=== PATIENT | male | born 1965 | race Caucasian/White ===

== ENCOUNTER 2019-06-24 08:45 | Emergency (ER) | payer BC, SELFPAY ==
[2019-06-24 09:00] VITALS: BP 176/89; PULSE 86; RESP 18; TEMP 36.6; O2SAT 97; BMI 37.9
--- NOTE | 2019-06-24 09:01 | ED.SKABFB ---
HPI - Skin/Abscess/Foreign Bdy General Chief complaint: Skin/Abscess/Foreign Body Stated complaint: left big toe nail partially removed/diabetic x2day Time Seen by Provider: 06/24/19 08:52 Source: patient Mode of arrival: Ambulatory Limitations: no limitations History of Present Illness HPI narrative: Patient is a 53-year-old male with history of diabetes presenting with right big toenail problem for 2 days. He cut his toenails a couple days ago when he cut it it split lengthwise down the middle. He says it gets caught other worried it might be infected. No fever no redness no drainage Review of Systems Review of Systems Narrative: GENERAL: Denies chills,fever HEENT: Denies throat pain RESPIRATORY: Denies dyspnea, cough, wheezing CARDIOVASCULAR: Denies chest pain, palpitations GASTROINTESTINAL: Denies nausea, vomiting MUSCULOSKELETAL: Denies extremity pain, injury SKIN: See HPI NEUROLOGIC: Denies weakness, dizziness, headache, numbness 8 point review of systems is negative except for those stated above and HPI Patient History Medical History (Updated 06/24/19 @ 09:13 by Ariela Rocha DO) Diabetes (Acute) Hypertension (Acute) Exam Initial Vital Signs Initial Vital Signs: Vital Signs Temperature 97.9 F 06/24/19 09:00 Pulse Rate 86 06/24/19 09:00 Respiratory Rate 18 06/24/19 09:00 Blood Pressure 176/89 H 06/24/19 09:00 Pulse Oximetry 97 06/24/19 09:00 GENERAL: Well-appearing, well-nourished and in no acute distress. CARDIOVASCULAR: peripheral pulses in tact, cap refill <2 sec RESPIRATORY: No respiratory distress, speaks in full sentences without difficulty EXTREMITIES: Normal range of motion, no clubbing or edema. Neurovascularly intact NEUROLOGICAL: Cranial nerves II through XII grossly intact. Normal gait and speech. SKIN: Right big toenail is still attached lengthwise injury noted down removal of toenail however still very much attached it does come up a little bit. Toe itself is not erythematous. No subungual hematoma, however there is some blood surrounding the nail. Course Vital Signs Vital signs: Vital Signs - 8 hr 06/24/19 09:00 Temperature 97.9 F Pulse Rate 86 Respiratory Rate 18 Blood Pressure 176/89 H Pulse Oximetry 97 MDM - Skin/Abscess/Foreign Bdy MDM Narrative Medical decision making narrative: At this time no sign of infection recommend supportive care and daily checks. He is given podiatry information as well. Discharge Plan Departure Patient Disposition: Home Clinical Impression: Avulsed toenail Qualifiers: Encounter type: initial encounter Qualified Code(s): S91.209A - Unspecified open wound of unspecified toe(s) with damage to nail, initial encounter Instructions: DI for Ingrown Toenail Removal, DI for Ingrown Toenail Activity Restrictions/Additional Instructions: *You have been diagnosed with avulsed toenail *What to do: Recommend is keeping toenail wrapped letting it air out. Look at toes and feet every day or infection *Continue to take medications as directed *Follow up with your primary care provider in 2-3 days May need to follow up with Podiatry *Return to ER if you should have redness pus swelling increased pain or any new, worsening or concerning symptoms Referrals: Maryan Alonso DPM [Physician] - Wali Luna DPM [Physician] -
== END 2019-06-24 09:30 | disposition home or self-care (01) ==
PROVIDERS: Emergency Provider Emergency Medicine
DX: S91.209A Unspecified open wound of unspecified toe(s) with damage to nail, initial encounter (principal); E11.9 Type 2 diabetes mellitus without complications; I10 Essential (primary) hypertension
CPT/HCPCS: 99282

== ENCOUNTER → 2021-11-28 13:40 | Outpatient (CLI) | payer OTHER, SELFPAY ==
[2021-11-28 14:09] LABS: Appearance Urine UA CLEAR; Bilirubin Urine UA NEGATIVE (NEGATIVE); Color Urine UA YELLOW; Glucose Urine UA NEGATIVE (Negative); Ketones Urine UA NEGATIVE (NEGATIVE); Leukocyte Esterase Urine UA NEGATIVE (NEGATIVE); Nitrite Urine UA NEGATIVE (Negative); Occult Blood Urine UA TRACE-LYSED (Negative); Protein Urine UA NEGATIVE (Negative); Urobilinogen Urine UA 0.2 E.U./dL (0.2)
[2021-11-28 14:11] LABS: Add Manual Diff / Slide Review NO; Basophils Absolute Auto 0 /uL (0-100); Basophils Percent Auto 0.2 % (0-2); Eosinophils Absolute Auto 200 /uL (0-450); Eosinophils Percent Auto 2.5 % (2-4); Hematocrit 41.1 % (41-53); Hemoglobin 14.3 g/dL (13.5-17.5); Lymphocytes Absolute Auto 2200 /uL (1100-4500); Lymphocytes Percent Auto 25.1 % (25-40); Mean Corpuscular HGB Conc 34.9 % (30-36); Mean Corpuscular Hemoglobin 29.9 PG (26-34); Mean Corpuscular Volume 85.5 fL (80-100); Monocytes Absolute Auto 600 /uL (0-900); Monocytes Percent Auto 7.1 % (3-14); Neutrophils Absolute Auto 5700 /uL (1500-7000); Neutrophils Percent Auto 65.1 % (50-75); Platelet Count 360 X10^3/uL (150-400); Red Cell Distribution Width 13.3 % (11.6-14.8); White Blood Cell Count 8.7 X10^3/uL (4.5-11.0)
[2021-11-28 14:43] LABS: Bacteria Urine Few (2-10); RBC Urine 0-1/HPF (0-5/HPF); Squamous Epithelial Cell Urine 0-1 /HPF (0-5/HPF); WBC Urine 0-1/HPF (0-5/HPF)
[2021-11-28 14:44] LABS: Culture Indicated Urine Cult Not Indicated
[2021-11-28 14:53] LABS: BUN Creatinine Ratio 15.1 (6-22); Blood Urea Nitrogen 13 mg/dL (9-20); Calcium 9.1 mg/dL (8.4-10.2); Carbon Dioxide 29 mmol/L (22-32); Chloride 103 mmol/L (98-107); Estimated Glomerular Filt Rate > 60 mL/min (>60); Glucose 97 mg/dL (70-100); HEMOLYSIS < 15 (0-50); Potassium 4.4 mmol/L (3.4-5.1); Sodium 139 mmol/L (137-145)
[2021-11-28 15:12] LABS: Hemoglobin A1C% w Est Avg Glu 6.4 % (4.0-6.0)
== END ==
PROVIDERS: Referring Provider Orthopaedic Surgery; Visit Provider Orthopaedic Surgery
DX: Z01.812 Encounter for preprocedural laboratory examination (principal); R73.9 Hyperglycemia, unspecified; N39.0 Urinary tract infection, site not specified
CPT/HCPCS: 36415; 80048; 81001; 83036; 85025; 93005

== ENCOUNTER → 2021-12-10 09:42 | Outpatient (CLI) | payer OTHER, SELFPAY ==
[2021-12-10 12:54] LABS: COVID19 -Nasal RAPID Negative (Negative)
== END ==
PROVIDERS: Referring Provider Orthopaedic Surgery; Visit Provider Family Medicine Sleep Medicine
DX: Z20.822 Contact with and (suspected) exposure to COVID-19 (principal)
CPT/HCPCS: 87635; C9803

== ENCOUNTER 2021-12-12 11:38 | Day surgery (SDC) | payer OTHER, SELFPAY ==
[2021-12-10 12:56] VITALS: BMI 38.4
[2021-12-12] VITALS (12 sets, daily range): BP systolic 128–164; BP diastolic 70–88; PULSE 84–102; RESP 14–20; TEMP 36.2–38; O2SAT 93–98; BMI 38.4
--- NOTE | 2021-12-12 09:12 | DI.RAD.S_ITS ---
PROCEDURE: XR KNEE RT 1TO2V INDICATIONS: tka TECHNIQUE: 2 view(s) of the knee acquired. [facility] 4+ VIEWS RIGHT, 07/25/2021, 9:23. FINDINGS: Bones: Patient is status post knee joint arthroplasty. Hardware components are in expected positions. Visualized bony structures are intact. Soft tissues: Overlying postoperative changes are noted. IMPRESSION: Expected postsurgical change for right knee arthroplasty. Dictated by: Ree Liz MD, PhD on 12/13/2021 at 9:21 Approved by: Ree Liz MD, PhD on 12/13/2021 at 9:22
[2021-12-12] MEDS: ACETAMINOPHEN 325 MG TABLET 975 MG PO (12:29)
[2021-12-12] MEDS: CELECOXIB 200 MG CAPSULE PO (12:29)
[2021-12-12] MEDS: VANCOMYCIN 1,000 MG/200 ML PIGGYBACK 200 MG IV (12:43)
[2021-12-12] MEDS: LACTATED RINGERS 1,000 ML 42 ML IV ×2 (12:43→15:01)
--- NOTE | 2021-12-12 13:26 | PM.PREOP ---
Pre-operative Note COVID-19 COVID-19 status: Negative Interval Note History & Physical reviewed/Exam performed by Physician: Yes Changes to H&P: No
[2021-12-12] MEDS: TRANEXAMIC ACID 1,000 MG VIAL 2000 MG INJ ×2 (14:23→16:03)
[2021-12-12] MEDS: CEFAZOLIN 2 GM/20 ML SYRINGE IV (14:26)
--- NOTE | 2021-12-12 14:38 | SUR.OPER ---
Supine on padded OR bed. Pillow under head, arms secured on padded armboards <90 degree abduction. Safety belt across torso. Non-operative leg secured with tape over blanket over lower leg. Operative leg secured in DeMayo/Jose/Nathe positioner. Foam padded brace at thigh of operative leg.
[2021-12-12] MEDS: BUPIVACAINE LIPOSOME 266 MG/20 ML VIAL INJ (14:48)
[2021-12-12] MEDS: EPINEPHrine 1 MG/ML 0.15 MG INJ (14:49)
--- NOTE | 2021-12-12 17:33 | P.OP_ITS ---
Operative Date/Time/Diagnoses Date of procedure: 12/12/21 Time of procedure: 17:30 Pre-op diagnosis: Severe right knee OA Post-op diagnosis: same Procedure & Clinicians Procedure: Right total knee arthroplasty Same procedure as scheduled: Yes Indications: The patient has had progressively worsening right knee pain with radiographic changes consistent with arthritis. Non-operative management has failed and the patient has requested total knee replacement. The risks, benefits and alternatives to surgery were discussed with the patient prior to proceeding. Risks discussed included, but were not limited to, failure to relieve pain, stiffness, infection, nerve damage, deep venous thrombosis, pulmonary embolism, stroke, coma, heart attack, permanent paralysis and , as well as the potential need for eventual revision of the prosthetic. Surgeon: Otilia Haile Site Damage Prevention Technician: Buster Tavares Anesthesia Type: General and Spinal Operative Notes Findings: Very tight knee, severe right knee osteoarthritis, acceptable stability Closure Type: primary Specimen(s): none sent Prosthetic devices, grafts, tissues, transplants, or devices: [facility] 2 size 8 femur, size 7 tibia, +9 poly, 38 oval patella Applied: drain(s) Estimated Blood Loss (mL): 250 Blood products transfused: none Tourniquet time (min): 93 Procedure in detail: The patient was seen in the pre-operative area, where the patient identified the right knee as the operative site and this was marked with my initials. The patient received pre-operative antibiotics, and was taken to the operating room and placed on the operative table in the supine position. After satisfactory anesthesia, a manager multimedia out was performed. The right leg was encircled with a tourniquet about the proximal thigh, and the leg was prepared from the toes to the tourniquet with ChloroPrep in the usual fashion and draped through sterile drapes. The leg was elevated and exsanguinated with Eschmark bandage and the tourniquet inflated to [250] mmHg pressure. The knee was approached through an approximately 18 cm incision centered over the patella and carried into the knee through a medial parapatellar arthrotomy. A portion of the medial and lateral meniscus was resected. Soft tissue was carefully mobilized around the patella the patella was measured with a caliper. Bone was resected from the patella and the patellar height was reconstituted with up an appropriate sized patellar component. He had a very tight knee. It was quite difficult taped to mobilize the patella and the final cut and mobilization was done after the distal femoral and tibial cut. A cover was then placed on the patella. A small amount of additional medial and lateral meniscus was resected. The distal femur was cut at 5?. A [+2] cut was used. It looked like an appropriate distal femoral cut and the cut was made without difficulty. An extramedullary guide was used for the tibial cut. 10 mm was resected off the least affected side.The tibia was prepared. The rotation was assessed. The patient was placed in extension residual medial and lateral meniscus as well as any residual bone was carefully resected. [No] additional tibia was resected. Hemostasis was achieved especially posteriorly. Additional local was injected into the posterior capsule. The extension gap was assessed and additional releases for gap balancing were performed as necessary. It was checked with the gap manager of clinical. The femoral component trial was placed and the notch was finished. The rotation was assessed and the appropriate size femoral guide was placed on the distal femur and finishing cuts were made. There was no evidence of notching. The anterior, posterior and chamfer cuts were then made. The posterior osteophytes and soft tissues were then removed. The posterior capsule was injected with part of a mixture of 60 ml 0.25% Marcaine mixed with 20 ml Exparel for post operative pain control. The remainder of this mixture was injected into the capsule and subcutaneous tissues during cement curing. The tibial and femoral components were then placed and the knee placed through a range of motion. There was good range of motion and stability. He did have a tight patellofemoral joint. Range of motion was [0-130], with good stability throughout the range. The trials were then removed, and the tibia was finished. The bone was prepared with pulsatile lavage, and dried with a sponge. Cement was applied and the final prosthetics placed. Excess cement was removed during and after cement curing. A brief Betadine soak was performed. After confirming there was no extruded cement posteriorly, the final tibial insert was placed. The knee was copiously irrigated and the tourniquet deflated. Hemostasis was obtained with the Bovie cautery. A drain was placed and brought out superolaterally. The capsule was closed with interrupted nonabsorbable suture. The subcutaneous layer was closed with barbed sutures, and the skin with a running 3-0 V-Lock suture and Surgical glue. A lizet dressing was applied and the patient was taken to recovery having tolerated the procedure well. Complications: none Post-operative Condition: stable Disposition: Acute Care Plan for aftercare: The patient will be maintained on a standard total knee replacement protocol with weight bearing as tolerated. The patient will receive aspirin and sequential compression devices for DVT prophylaxis. The patient will be discharged home when safe for the home environment.
[2021-12-12] MEDS: ONDANSETRON 4 MG/2 ML INJ IV (17:38)
[2021-12-12] MEDS: OXYCODONE IR 5 MG TABLET PO ×2 (17:39→20:46)
[2021-12-12] MEDS: ALBUTEROL/IPRATROPIUM 3 ML AMPUL INH (17:39)
[2021-12-12] MEDS: LACTATED RINGERS 1,000 ML 100 ML IV (18:45)
[2021-12-12] MEDS: ASPIRIN EC 81 MG TABLET PO (20:46)
[2021-12-12] MEDS: ACETAMINOPHEN 325 MG TABLET 650 MG PO (20:46)
[2021-12-12] MEDS: DOCUSATE 100 MG CAPSULE PO (20:46)
[2021-12-12] MEDS: LORATADINE 10 MG TABLET PO (20:47)
[2021-12-12] MEDS: CEFAZOLIN VIAL 3 GM in SODIUM CHLORIDE 0.9% 100 ML IV (22:24)
[2021-12-12] MEDS: IBUPROFEN 400 MG TABLET PO (22:26)
[2021-12-13] VITALS: BP 124/78; PULSE 101; RESP 18; TEMP 36.8; O2SAT 97
[2021-12-13] MEDS: ACETAMINOPHEN 325 MG TABLET 650 MG PO ×4 (01:21→18:14)
[2021-12-13] MEDS: OXYCODONE IR 5 MG TABLET PO ×2 (01:23→15:52)
[2021-12-13 06:00] VITALS: BP 133/82; PULSE 92; RESP 18; TEMP 36.9; O2SAT 96
[2021-12-13] MEDS: CEFAZOLIN VIAL 3 GM in SODIUM CHLORIDE 0.9% 100 ML IV (06:24)
[2021-12-13] MEDS: OXYCODONE IR 10 MG TABLET PO ×2 (06:25→11:44)
[2021-12-13] MEDS: IBUPROFEN 400 MG TABLET PO ×2 (06:25→14:04)
[2021-12-13 06:50] LABS: Hematocrit 33.8 % (41-53); Hemoglobin 11.7 g/dL (13.5-17.5)
[2021-12-13] MEDS: METFORMIN HCL 500 MG TABLET 1000 MG PO ×2 (08:05→16:50)
[2021-12-13] MEDS: ASPIRIN EC 81 MG TABLET PO (08:05)
[2021-12-13] MEDS: DOCUSATE 100 MG CAPSULE PO (08:05)
--- NOTE | 2021-12-13 08:43 | P.DS_ITS ---
History of Present Illness History of Present Illness Date Patient Seen: 12/13/21 Time Patient Seen: 08:43 Chief complaint: Knee pain Narrative: Pain is [id number]. Denies fever or chills. No nausea vomiting. Patient has assistance at home. Discharge Providers Provider Discharge Date: 12/13/21 Consults: 12/12/21 09:12 Consult to Anesthesiology Routine Comment: Consulting Provider: Anesthesiologist Reason for consultation: Regional block for post operative pain control 12/12/21 18:14 Consult to Discharge Planning Routine Comment: Consult to Physical Therapy Evaluate & Treat Comment: Physician Instructions: postop TKA protocol Consult to Respiratory Therapy Evaluate & Treat Comment: Physician Instructions: Evaluate and treat Discharge provider: Buster Tavares PA-C Summary Hospital Course Discharge Diagnosis: Severe right knee osteoarthritis Hospital Course: Right total knee arthroplasty Same procedure as scheduled: Yes Indications: The patient has had progressively worsening right knee pain with radiographic changes consistent with arthritis. Non-operative management has failed and the patient has requested total knee replacement. The risks, benefits and alternatives to surgery were discussed with the patient prior to proceeding. Risks discussed included, but were not limited to, failure to relieve pain, stiffness, infection, nerve damage, deep venous thrombosis, pulmonary embolism, stroke, coma, heart attack, permanent paralysis and , as well as the potential need for eventual revision of the prosthetic. Surgeon: Otilia Haile Casting Chipper: Buster Tavares Anesthesia Type: General and Spinal Operative Notes Findings: Very tight knee, severe right knee osteoarthritis, acceptable stability Closure Type: primary Specimen(s): none sent Prosthetic devices, grafts, tissues, transplants, or devices: [employer] BCS 2 size 8 femur, size 7 tibia, +9 poly, 38 oval patella Applied: drain(s) Estimated Blood Loss (mL): 250 Blood products transfused: none Tourniquet time (min): 93 Patient admitted to hospital for right total knee arthroplasty. Patient consented to the same. Patient underwent right total knee arthroplasty on December 12, 2021. Patient back in his room recovering well as in stable condition. Patient will be discharged home today after physical therapy if safe for home environment. Status at Discharge Cognitive/behavioral status at discharge: at baseline, oriented Functional status at discharge: uses cane/walker Overall status at discharge: patient is progressing back to baseline Time Spent with Patient Time spent: Less than 30 minutes Exam Vital Signs (past 8 hours): - 12/13/21 06:00 Temperature 98.4 F Pulse Rate 92 H Respiratory Rate 18 Blood Pressure 133/82 Pulse Oximetry 96 Oxygen Delivery Method Room Air Oxygen Flow Rate 0 Narrative Exam Narrative: 56-year-old male resting comfortably in bed in no apparent distress. Dressing clean dry and intact. Motor functions intact bilateral lower extremities. Sensation grossly intact to light touch bilateral lower extremities. Const General: cooperative HENMT Head: normal to inspection Resp Effort & Inspection: normal respiratory effort and able to speak in complete sentences Objective Labs Result Diagrams: 12/13/21 06:29 Labs: Laboratory Results - last 24 hr 12/13/21 06:29 Hgb 11.7 L Hct 33.8 L PFSH Medical History BCC (basal cell carcinoma) Diabetes HLD (hyperlipidemia) Hypertension SANAM on CPAP Osteoarthritis Surgical History Hx of arthroscopy of left knee Social History household members: spouse Smoking Status: Never smoker alcohol intake: current Discharge Assessment & Plan Assessment and Plan Assessment: Patient progressing as expected status post right total knee arthroplasty Plan of Treatment: Mobilize with physical therapy, routine total knee protocol. Multimodal pain management Discharge home today in stable condition. Discharge Plan Discharge Plan Patient Disposition: Home Discharge orders & Medications Discharge Orders: Discharge (Order); Ordered 12/13/21 Ordered By: Buster Tavares Prescriptions: New acetaminophen 325 mg Tablet 650 mg PO Q6HR Qty: 60 0RF polyethylene glycol 3350 17 gram Powder In Packet 17 gm PO DAILY PRN (Reason: Constipation) Qty: 20 0RF aspirin 81 mg Tablet,Delayed Release (Dr/Ec) 81 mg PO BID Qty: 60 0RF ibuprofen 400 mg Tablet 400 mg PO Q8HR Qty: 60 0RF oxycodone 10 mg Tablet 10 mg PO Q3HR PRN (Reason: Pain, Severe (7-10)) Qty: 60 0RF Continued atorvastatin 20 mg Tablet 20 mg PO DAILY 0RF cetirizine 10 mg Tablet 10 mg PO BEDTIME 0RF amlodipine 5 mg Tablet 5 mg PO QPM 0RF metformin 1,000 mg Tablet 1,000 mg PO BID 0RF lisinopril 40 mg Tablet 40 mg PO DAILY 0RF metoprolol tartrate 25 mg Tablet 25 mg PO DAILY 0RF Discontinued acetaminophen 500 mg Capsule 1,000 mg PO BID PRN (Reason: Pain) 0RF Follow up/Referrals: Otilia Haile MD [Physician] - As previously scheduled (Follow up w/ Татьяна Mcnulty PA-C, on 12/24/2021 @ 2:40 pm at [facility] office in [place].) Diet/Activity/Treatments Diet: Diet as Tolerated Activity: Walk frequently! Cold/Heat Therapy: Ice to knee as needed for pain. Skin/Wound/Dressing Care Report to your healthcare provider any signs of infection, such as:: chills, fever, night sweats, unusual drainage and unusual redness Dressing: May remove Sunny wrap after 24-48 hours, leave dressing in place Discharge Data Attending Provider: Otilia Haile Quality VTE Deep Vein Thrombosis/Pulmonary Embolism Present on Admission: No
--- NOTE | 2021-12-13 11:07 | PT.IIE ---
Current Diagnoses Unilateral primary osteoarthritis, right knee (12/12/21) Surgery Performed Operation Date: 12/12/21 13:45 Actual Procedures p Total Knee Arthroplasty(Right) - Otilia Haile MD Medical History (Last Reviewed 12/13/21 @ 08:46 by Buster Tavares PA-C) BCC (basal cell carcinoma) Diabetes HLD (hyperlipidemia) Hypertension SANAM on CPAP Osteoarthritis Physical Therapy Inpatient Evaluation/Re-Eval M1 PT/OT-IP Prior Functional Status Start: 12/13/21 13:41 Freq: NEEDED Status: Active Protocol: Document 12/13/21 11:07 AB (Rec: 12/13/21 13:54 AB [email or web address]) Medical Review Prior Functional Status Medical History Reviewed Yes Communication able to make needs known Mobility and Gait pt stated that he is modified indpeendent with all mobilities without AD indoors but uses a walking stick/SPC for outdoor or long distance ambulation Social History Household Members spouse Living Arrangements House Number of Floors (Floors) One Floor Number of Stairs To Enter/Railing? 1 step to enter Home Environment Standard Height Toilet,Tub/ Shower Home Equipment Front Wheel Walker,Raised Toilet Seat w/Armrests,Shower Seat with Backrest M2 PT-IP Current Condition Start: 12/13/21 13:41 Freq: NEEDED Status: Active Protocol: Document 12/13/21 11:07 AB (Rec: 12/13/21 13:54 [email or web address]) Physical Therapy Current Condition Current Condition Evaluation Date 12/13/21 Treatment Diagnosis s/p R TKA; difficulty in walking Onset Date 12/12/21 M3 PT-IP Subjective Start: 12/13/21 13:41 Freq: NEEDED Status: Active Protocol: Document 12/13/21 11:07 AB (Rec: 12/13/21 13:54 [email or web address]) Subjective Physical Therapy Visit Type Type Initial Evaluation Visit Start Time 11:07 Visit Stop Time 12:06 Total Visit Minutes 59 Number of ENGRAVER AUTOMATIC Visits 0 Physical Therapy Visit Comments Patient Comments agreeable to do PT Therapy Pain Assessment Pain When Pain Assessed At Rest Pain Present Pain Present Pain Reported Location right knee Intensity 10 Scale Used Numeric (0 - 10) Pain Management Techniques Distraction,Modification of Treatment,Re-positioning, Timing of Activity with Medications M4 PT-IP Mobility and Gait Start: 05/13/22 13:41 Freq: NEEDED Status: Active Protocol: Document 12/13/21 11:07 AB (Rec: 12/13/21 13:54 AB [email or web address]) PT-Bed Mobility Assessment Supine to Sit Supine to Sit Standby Assistance PT-Transfer Assessment Sit to and From Stand Sit to and from Stand Contact Guard Assistance,1 Person Assistance,Use of Upper Extremities Equipment Transfer Assistive Device Gait Belt,Front Wheeled Walker Orthotic/Prosthetic Devices or Brace: No Transfers Transfer Destination Chair Transfer Technique Stand Step Pivot Transfer Ability Level of Assist Contact Guard Assistance,1 Person Assistance,Use of Upper Extremities Comments Mobility Comments heel slide completed prior to mobility. completed supine to sit SBA. able to sit on EOB SBA. BP: 139/35. pt without c/o dizziness. complete dis to stand CGA and max cues and completed step transfer to chair using FWW CGA. nurse gave pt pain meds and adjusted IV. completed sit to stand CGA and ambulated ~ 30 ft towards the step using FWW CGA. completed up/down platform set using FWW CGA and cues on first attempt and completed again without cues on 2nd. pt ambulated back to his room and agreed to sit on the chair . positioned on the chair. call light and table placed within reach. Gait Assessment Gait Gait Assistance Required: Contact Guard Assist Distance (Feet) 30 Able to Maintain Weight Bearing Status Yes During Gait Assistive Devices Assistive Device Gait Belt,Front Wheeled Walker Orthotic/Prosthetic Devices or Brace: Yes Gait Deviations General Gait Pattern Antalgic,Decreased Stride Length,Decreased Feet Clearance Factors Limiting Gait Function Factors Limiting Gait Function Decreased Activity Tolerance, Decreased Strength,Limited Range of Motion,Pain,Poor Balance,Poor Safety Awareness Stair Climbing Assessment Evaluation Level of Assist On Stairs Contact Guard Assistance Devices Stair Climbing Assistive Devices Front Wheel Walker Technique/Endurance Stair Climbing Direction Ascend and Descend Stair Climbing Technique Step to Step Number of Steps Climbed 1 Query Text: Stair Climbing Set # Repetitions (reps) 2 PT-Balance Assessment Sitting Balance and Reactions Static Sitting Balance Ability Good Dynamic Sitting Balance Ability Good Standing Balance and Reactions Static Standing Balance Ability Fair Dynamic Standing Balance Ability Fair Device Used FWW M5 PT-IP Objective Assessments Start: 12/13/21 13:41 Freq: NEEDED Status: Active Protocol: Document 12/13/21 11:07 AB (Rec: 12/13/21 13:54 AB [email or web address]) Orientation Orientation/Cognition Level of Alertness Alert Orientation Name,Place,Situation Language Function Ability No Deficits Noted Safety Awareness Understands Safety Issues Memory Description No Deficits Noted Gross Range of Motion Lower Extremity ROM Assessment Within Functional Limits Impairments R knee flexion: 45 deg R knee extension: ~ 25 deg less to 0 Strength Lower Extremity Strength Assessment Right Impaired Hip 3+/5 Knee 3+/5 Coordination Assessment Gross Coordination Gross Coordination WNL Sensation Assessment Sensation Gross Sensation WNL Muscle Tone Muscle Tone WNL Yes M6 PT-IP Treatment Start: 12/13/21 13:41 Freq: NEEDED Status: Active Protocol: Document 12/13/21 11:07 AB (Rec: 12/13/21 13:54 AB [email or web address]) Physical Therapy Treatment Education Education Provided Precautions,Weight Bearing Status,Post-Op Packet,Safety M7 PT-IP Assessment and Plan Start: 12/13/21 13:41 Freq: NEEDED Status: Active Protocol: Document 12/13/21 11:07 AB (Rec: 12/13/21 13:54 [email or web address]) PT Summary Assessment and Plan Potential Rehabilitation Potential Fair Status of Condition at Evaluation Evolving Summary Impairments Pain,ROM,Strength,Balance, Coordination,Sensation,Tone, Cognition,Bed Mobility, Transfers,Gait,Activity Tolerance Assessment Summary pt requiring CGA with mobility using FWW and has decrease activity tolerance due to c/o increase pain. pt stated that his spouse will not be able to come in for caregiver training due pt spouse works until after 4 pm. will continue to assess pt's mobility this afternoon for safe d/c. pt has outpt PT scheduled Goals Bed Mobility Goal Independent Transfer Goal Independent,Front Wheeled Walker Gait Goal Independent,Front Wheel Walker Gait Distance 200 Other Goals up/down 1 platform step using FWW mod I Days to Meet Goals 3 Frequency of Treatment Frequency Of Treatment Twice a Day Treatment Plan Physical Therapy Treatment Plan Bed Mobility Training,Transfer Training,Gait Training, Therapeutic Exercise,Balance Retraining,Post Op Education, Discharge Planning,Hot or Cold Pack,Neuromuscular Re-ed, Coordination Retraining,Manual Therapy Weight Bearing Status Weight Bearing Status Weight Bear as Tolerated Allowed Weight Bearing Amount (enter % RLE WBAT or #) (%) Recommendations To Nursing Amount of Assist Needed 1 Person Assist Discharge Recommendations PT Discharge Recommendations Home with Assistance, Outpatient PT Transportation Needs at Discharge Private Vehicle
[2021-12-13] MEDS: METOPROLOL IR 25 MG TABLET PO (11:44)
--- NOTE | 2021-12-13 11:44 | CM.DANOTE ---
DCP: Case received, EMR reviewed and met with patient. Introduced self and role. Was able to obtain information regarding patient's baseline activity status at home prior to his surgery. DCP assessment completed with information currently available. Patient is a 56 year old male who admitted yesterday morning to the care of the orthopedic team. PCP: JUSTINE MCKEE. Patient came to the hospital for a surgical procedure. He had left total knee arthroplasty. Patient has history of unilateral primary osteoarthritis. Met with patient in his room. He is alert and oriented. He was sitting up in bed, had been on his phone prior. He resides in [place] with his spouse, Jemma. At his baseline, he drives, only uses a walking stick. Confirmed that he has a couple of steps to get into his home only, and that his should be able to assist him when he goes home. P: Patient has discharge orders for today, pending working with Nathaniel Orozco RN/Workers Compensation Claims Analyst Discharge Planning/Care Management CM Discharge Assessment Start: 12/13/21 11:42 Freq: Status: Active Protocol: Document 12/13/21 11:42 (Rec: 12/13/21 11:44 [id number]) Discharge Planning Assessment Assigned Lease Analyst Estefania Orozco RN/Workers Compensation Claims Analyst Advance Directives? Yes Advance Directives on File No History Provided By Patient,Medical Record Prior Living Arrangements House Household Members spouse Type of transporation used prior to Drives own vehicle admit Independent with ADL's Yes Is patient alert and oriented? Yes Caregiver for Another No DME Already Rented / Owned Other Comment Patient indicated he uses a walking stick. Patient/Family Preference OP PT Therapy Barriers to Discharge No Discharge Plan Home Transportation Arrangement Spouse Referrals Initiated None needed Whiteboard Updated in Patient Room with Yes name and ext. # of Lease Analyst Review Status In Process Next Review Type Continued Stay Review Pre-Anesthesia Assessment Start: 12/10/21 12:56 Freq: Status: Complete Protocol: Document 12/10/21 12:56 CAB (Rec: 12/10/21 13:07 CAB [id number]) Pre-Anesthesia Assessment Preferred Name [facility] [place] Patient Information Reviewed Via Phone Assessment Assessment Completed With Patient Diagnostic Results BMP/CMP,CBC,EKG Comment Labs/ECG @ [facility] 11/28/21, COVID screen @ [facility] 12/10/21 Negative [facility] Care Provider [facility] Se[facility] Specialist in Last 12 Months Yes Specialist Seen Orthopedist Primary Language Korean Care Team Coordinator Scheduler Required No Height 6 ft 5 in Weight 324 lb Body Mass Index (BMI) 38.4 Hearing Ability Normal Visual Assist Glasses Dentition Type Teeth, Natural Present Barriers to Learning None Hx Anesthesia Reactions No Hx Family Anesthesia Reaction No Hx Malignant Hyperthermia No Hx Blood Transfusions No Anesthesia Review Requested No alcohol intake current alcohol intake frequency holidays/special occasions only Smoking Status Never smoker Substance Use Type does not use Pain Present Pain Reported Musculoskeletal Symptoms Abnormal Gait,Difficulty Walking,Joint Pain History of Falling (Recent or History of No ) Patient is completely paralyzed or No completely immobile Prosthesis or Orthotic Device Cane Mental Status Oriented to own ability Is patient on oxygen? No Does patient have JOSE/SOB No Hx Sleep Apnea Yes CPAP/BIPAP use prescribed and used routinely Will Bring CPAP/BIPAP DOS Yes Currently Taking a Beta Arlen Yes: Metoprolol Hx Chest Pain No Hx SOB No Hx Syncope or Dizziness No Anti-Coagulant Therapy No Has a Power Nut Runner Operator No Cardiac Testing No Hx Pacemaker/ICD No Pacemaker Rep Required? No Cardiac Clearance Received Not Applicable Diet Type At Home Regular dysphagia No Urinary Catheter Present No Hx Urinary Self Catheterization No Diabetes Yes HgbA1C 6.4 Date 11/28/21 Hx Drug Resistant Organism No Presence of External or Internal Medical Yes: CPAP Devices Have you had any close contact with No someone diagnosed with COVID-19? Received a COVID vaccine? No Marital Status Lives With spouse Prior Living Arrangements House Number of Floors (Floors) One Floor Support System Spouse Does the Patient Have Assistance After Yes Surgery Patient Discharge Plan Description Return Home Comment Pt advised overnight length of stay per surgeon Feels Safe in Current Environment Yes Been Physically Hurt or Threatened By a No Person in Current Environment Do you have thoughts of harming yourself None or others? Are you currently considering suicide? No Do you have a plan to hurt yourself or No Plan others? Do You Have Any Spiritual Beliefs That No May Affect Your HC Choices? Do You Have Any Cultural Practices That No May Affect Your HC Choices? Comment Mandaeism Who Can We Speak to About Patient's Care Family, friends Identifying Code for Release of Patient Declines to issue Information Health Care Proxy/Next of Kin Jemma () Health Care Proxy Emergency Contact Name Jemma () Emergency Contact Advance Directives? Yes Advance Directives on File No Requested Patient Bring Advanced Yes Directives DOS Power of Mechanical Energy Engineer Yes Power of Mechanical Energy Engineer Name Jemma () Power of Mechanical Energy Engineer PAC Instructions Bring CPAP/BIPAP,Diabetes instructions,Durable medical equipment,Medications to take/ avoid,Nasal antibiotic,No ETOH /petroleum product on skin DOS ,NPO,Post-op transportation, Pre-surgical wash,Sensory aids ,Sturdy shoes/comfortable clothes,Do not bring valuables and remove jewelry
[2021-12-13] MEDS: ATORVASTATIN 20 MG TABLET PO (11:45)
[2021-12-13 11:51] VITALS: BP 158/81; PULSE 90
[2021-12-13] MEDS: lisinopriL 20 MG TABLET 40 MG PO (11:51)
--- NOTE | 2021-12-13 14:40 | PT.IPTN ---
Current Diagnoses Unilateral primary osteoarthritis, right knee (12/12/21) Surgery Performed Operation Date: 12/12/21 13:45 Actual Procedures p Total Knee Arthroplasty(Right) - Otilia Haile MD Physical Therapy Treatment Note M2 PT-IP Current Condition Start: 12/13/21 13:41 Freq: NEEDED Status: Active Protocol: Document 12/13/21 11:07 AB (Rec: 12/13/21 13:54 AB [id number]) Physical Therapy Current Condition Current Condition Evaluation Date 12/13/21 Treatment Diagnosis s/p R TKA; difficulty in walking Onset Date 12/12/21 M3 PT-IP Subjective Start: 12/13/21 13:41 Freq: NEEDED Status: Active Protocol: Document 12/13/21 14:40 AB (Rec: 12/13/21 16:36 AB [id number]) Subjective Physical Therapy Visit Type Type Treatment Note Visit Start Time 14:40 Visit Stop Time 15:15 Total Visit Minutes 35 Number of WOODWINDS TEACHER Visits 0 Physical Therapy Visit Comments Patient Comments agreeable to do PT Therapy Pain Assessment Pain When Pain Assessed At Rest Pain Present Pain Present Pain Reported Location right knee Intensity 5 Scale Used Numeric (0 - 10) Pain Management Techniques Apply Cold,Distraction, Modification of Treatment,Re- positioning,Timing of Activity with Medications M4 PT-IP Mobility and Gait Start: 12/13/21 13:41 Freq: NEEDED Status: Active Protocol: Document 12/13/21 14:40 AB (Rec: 12/13/21 16:36 AB [id number]) PT-Transfer Assessment Sit to and From Stand Sit to and from Stand Standby Assistance,1 Person Assistance,Use of Upper Extremities Equipment Transfer Assistive Device Gait Belt,Front Wheeled Walker Orthotic/Prosthetic Devices or Brace: No Comments Mobility Comments pt sitting on chair and agreed to do PT. completed sit to stand SBA and ambulated out to the hallway ~ 25 ft and completed up/down step using FWW CGA and cues. completed x 2 sets. pt ambulated more and went back to his room ~ 40 ft using FWW SBA. pt wants to stay up on the chair. positioned with call light and table within reach. ice pack on Gait Assessment Gait Gait Assistance Required: Standby Assistance Distance (Feet) 40 Able to Maintain Weight Bearing Status Yes During Gait Assistive Devices Assistive Device Gait Belt,Front Wheeled Walker Orthotic/Prosthetic Devices or Brace: No Gait Deviations General Gait Pattern Decreased Stride Length, Decreased Feet Clearance,Step- to Gait,Wide Based Gait Factors Limiting Gait Function Factors Limiting Gait Function Decreased Activity Tolerance, Decreased Strength,Limited Range of Motion,Pain,Poor Balance,Poor Safety Awareness Stair Climbing Assessment Evaluation Level of Assist On Stairs Contact Guard Assistance Devices Stair Climbing Assistive Devices Front Wheel Walker Technique/Endurance Stair Climbing Direction Ascend and Descend Stair Climbing Technique Step to Step Number of Steps Climbed 1 Stair Climbing Set # Repetitions (reps) 2 M5 PT-IP Objective Assessments Start: 12/13/21 13:41 Freq: NEEDED Status: Active Protocol: Document 12/13/21 11:07 AB (Rec: 12/13/21 [facility] Orientation Orientation/Cognition Level of Alertness Alert Orientation Name,Place,Situation Language Function Ability No Deficits Noted Safety Awareness Understands Safety Issues Memory Description No Deficits Noted Gross Range of Motion Lower Extremity ROM Assessment Within Functional Limits Impairments R knee flexion: 45 deg R knee extension: ~ 25 deg less to 0 Strength Lower Extremity Strength Assessment Right Impaired Hip 3+/5 Knee 3+/5 Coordination Assessment Gross Coordination Gross Coordination WNL Sensation Assessment Sensation Gross Sensation WNL Muscle Tone Muscle Tone WNL Yes M6 PT-IP Treatment Start: 12/13/21 13:41 Freq: NEEDED Status: Active Protocol: Document 12/13/21 14:40 AB (Rec: 12/13/21 16:36 [facility] Physical Therapy Treatment Education Education Provided Safety M7 PT-IP Assessment and Plan Start: 12/13/21 13:41 Freq: NEEDED Status: Active Protocol: Document 12/13/21 14:40 AB (Rec: 12/13/21 16:36 [facility] PT Summary Assessment and Plan Potential Rehabilitation Potential Good Summary Impairments Pain,ROM,Strength,Balance, Coordination,Sensation,Tone, Cognition,Bed Mobility, Transfers,Gait,Activity Tolerance Progress Towards Goals Slow Progress due to Pain Assessment Summary pt requiring SBA with mobility using FWW and CGA for stair climbing for safety using FWW. pt plans to go home and spouse to assist him. pt has outpt PT set up. Goals Bed Mobility Goal Independent Transfer Goal Independent,Front Wheeled Walker Gait Goal Independent,Front Wheel Walker Gait Distance 200 Other Goals up/down 1 platform step using FWW mod I Days to Meet Goals 3 Frequency of Treatment Frequency Of Treatment Twice a Day Treatment Plan Physical Therapy Treatment Plan Bed Mobility Training,Transfer Training,Gait Training, Therapeutic Exercise,Balance Retraining,Post Op Education, Discharge Planning,Hot or Cold Pack,Neuromuscular Re-ed, Coordination Retraining,Manual Therapy Weight Bearing Status Weight Bearing Status Weight Bear as Tolerated Allowed Weight Bearing Amount (enter % RLE WBAT or #) (%) Recommendations To Nursing Amount of Assist Needed 1 Person Assist Discharge Recommendations PT Discharge Recommendations Home with Assistance, Outpatient PT Transportation Needs at Discharge Private Vehicle
[2021-12-13] MEDS: AMLODIPINE 5 MG TABLET PO (16:50)
== END 2021-12-13 19:20 | disposition home or self-care (01) ==
LOC: OR 11:44 → AC 11:46
PROVIDERS: Referring Provider Orthopaedic Surgery; Visit Provider Orthopaedic Surgery
PROC: 0SRC0JZ Replacement of Right Knee Joint with Synthetic Substitute, Open Approach (ICD-10-PCS; CPT 27447; principal; 2021-12-12 13:45)
DX: M17.11 Unilateral primary osteoarthritis, right knee (principal); I10 Essential (primary) hypertension; E11.9 Type 2 diabetes mellitus without complications; Z79.84 Long term (current) use of oral hypoglycemic drugs; G47.30 Sleep apnea, unspecified
CPT/HCPCS: 27447; 36415; 73560; 82962; 85014; 85018; 94660; 97116; 97162; 97530; C1713; C9290; J0171; J0690; J2250; J2274; J2405; J2704; J3010

== ENCOUNTER → 2024-06-29 10:27 | Outpatient (CLI) | payer OTHER, SELFPAY ==
[2021-12-12 18:19] VITALS: BMI 38.4
--- NOTE | 2024-06-29 10:53 | EKG_ITS ---
[id number] [place] [address] Test Date: 2024-06-29 Pat Name: [place] Baird Department: Room: Gender: Male Student Ministries Director: : 1965 Requested By: Order Number: [id number] Reading MD: Sridhar Sagastume Measurements Intervals [place] Rate: 77 P: 20 MD: 166 QRS: -38 QRSD: 102 T: 54 QT: 382 QTc: 432 Interpretive Statements Normal sinus rhythm Left axis deviation Electronically Signed On 06-29-2024 14:10:18 PST by Sridhar Sagastume
[2024-06-29 11:10] LABS: Add Manual Diff / Slide Review NO; Basophils Absolute Auto 0 /uL (0-100); Basophils Percent Auto 0.2 % (0-2); Eosinophils Absolute Auto 200 /uL (0-450); Hemoglobin 14.3 g/dL (13.5-17.5); Lymphocytes Absolute Auto 1800 /uL (1100-4500); Lymphocytes Percent Auto 26.3 % (25-40); Mean Corpuscular HGB Conc 34.9 % (30-36); Mean Corpuscular Hemoglobin 30.4 PG (26-34); Mean Corpuscular Volume 87.1 fL (80-100); Monocytes Absolute Auto 500 /uL (0-900); Monocytes Percent Auto 7.8 % (3-14); Neutrophils Absolute Auto 4400 /uL (1500-7000); Neutrophils Percent Auto 62.7 % (50-75); Platelet Count 303 X10^3/uL (150-400); Red Blood Cell Count 4.71 X10^6/uL (4.5-5.9); Red Cell Distribution Width 13.6 % (11.6-14.8)
[2024-06-29 11:17] LABS: Hemoglobin A1C% w Est Avg Glu 5.9 % (4.0-6.0)
[2024-06-29 11:59] LABS: Blood Urea Nitrogen 16 mg/dL (9-20); Calcium 9.1 mg/dL (8.4-10.2); Carbon Dioxide 30 mmol/L (22-32); Chloride 102 mmol/L (98-107); Estimated Glomerular Filt Rate > 60 mL/min (>60); Glucose 107 mg/dL (70-100); HEMOLYSIS < 15 (0-50); Potassium 4.6 mmol/L (3.4-5.1); Sodium 139 mmol/L (137-145)
[2024-06-29 12:43] LABS: Appearance Urine UA CLEAR; Bilirubin Urine UA NEGATIVE (NEGATIVE); Color Urine UA YELLOW; Glucose Urine UA NEGATIVE (Negative); Ketones Urine UA NEGATIVE (NEGATIVE); Leukocyte Esterase Urine UA NEGATIVE (NEGATIVE); Nitrite Urine UA NEGATIVE (Negative); Occult Blood Urine UA TRACE-INTACT (Negative); Protein Urine UA NEGATIVE (Negative); Specific Gravity Urine UA >=1.030 (1.000-1.035); pH Urine UA 5.5 (4.5-8.0)
[2024-06-29 12:52] LABS: Bacteria Urine None Seen; Culture Indicated Urine Cult Not Indicated; RBC Urine 1-5/HPF (0-5/HPF); Squamous Epithelial Cell Urine 0-1 /HPF (0-5/HPF); Urine Volume 10mL (spun); WBC Urine None Seen (0-5/HPF)
== END ==
PROVIDERS: Referring Provider Orthopaedic Surgery; Visit Provider Orthopaedic Surgery
DX: Z01.818 Encounter for other preprocedural examination (principal); Z01.812 Encounter for preprocedural laboratory examination; R73.9 Hyperglycemia, unspecified; N39.0 Urinary tract infection, site not specified
CPT/HCPCS: 36415; 80048; 81001; 83036; 85025; 93005

== ENCOUNTER 2024-07-21 11:11 | Day surgery (SDC) | payer OTHER, SELFPAY ==
[2021-12-12 18:19] VITALS: BMI 38.4
[2024-07-11 14:00] VITALS: BMI 40.3
[2024-07-21] VITALS (9 sets, daily range): BP systolic 148–211; BP diastolic 79–109; PULSE 78–92; RESP 11–20; TEMP 36.2–36.9; O2SAT 92–97; BMI 40.3; BMI 40.8
--- NOTE | 2024-07-21 06:00 | DI.RAD.S_ITS ---
PROCEDURE: XR KNEE LT 1TO2V INDICATIONS: TKA TECHNIQUE: 2 view(s) of the knee acquired. COMPARISON: [facility], CR, XR KNEE RT 1TO2V, 12/12/2021, 16:48. FINDINGS: Bones: Patient is status post knee joint arthroplasty. Hardware components are in expected positions. Visualized bony structures are intact. Soft tissues: Overlying postoperative changes are noted. IMPRESSION: Expected post-operative appearance of a knee arthroplasty. Dictated by: Curt Huizar M.D. on 07/21/2024 at 23:01 Approved by: Curt Huizar M.D. on 07/21/2024 at 23:01
[2024-07-21] MEDS: ACETAMINOPHEN 325 MG TABLET 975 MG PO (12:17)
[2024-07-21] MEDS: CELECOXIB 200 MG CAPSULE 400 MG PO (12:17)
[2024-07-21] MEDS: LACTATED RINGERS 1,000 ML 120 ML IV ×2 (12:33→19:43)
[2024-07-21] MEDS: VANCOMYCIN 1,000 MG/200 ML PIGGYBACK 200 MG IV (15:30)
--- NOTE | 2024-07-21 16:37 | PM.PREOP ---
Pre-operative Note Interval Note History & Physical reviewed/Exam performed by Physician: Yes Changes to H&P: No
--- NOTE | 2024-07-21 16:37 | PM.OP.1 ---
Operative Date/Time/Diagnoses Date of procedure: 07/21/24 Time of procedure: 16:50 Pre-op diagnosis: left knee OA Post-op diagnosis: same Procedure & Clinicians Procedure: Left total knee arthroplasty Same procedure as scheduled: Yes Indications: The patient has had progressively worsening left knee pain with radiographic changes consistent with arthritis. Non-operative management has failed and the patient has requested total knee replacement. The risks, benefits and alternatives to surgery were discussed with the patient prior to proceeding. Risks discussed included, but were not limited to, failure to relieve pain, stiffness, infection, nerve damage, deep venous thrombosis, pulmonary embolism, stroke, coma, heart attack, permanent paralysis and , as well as the potential need for eventual revision of the prosthetic. Surgeon: Otilia Haile Rubber Roller Grinder Operator: Buster Tavares Anesthesia Type: General and Spinal Operative Notes Findings: Severe left knee OA Closure Type: primary Specimen(s): none sent Prosthetic devices, grafts, tissues, transplants, or devices: Haile and nephсергей dickey BCS2 size femur 8, size tibia 7, poly 9, oval patella 38 Estimated Blood Loss (mL): 250 Blood products transfused: none Tourniquet time (min): 130 Procedure in detail: The patient was seen in the pre-operative area, where the patient identified the left knee as the operative site and this was marked with my initials. The patient received pre-operative antibiotics, and was taken to the operating room and placed on the operative table in the supine position. After satisfactory anesthesia, a full stack software engineer out was performed. The left leg was encircled with a tourniquet about the proximal thigh, and the leg was prepared from the toes to the tourniquet with ChloroPrep in the usual fashion and draped through sterile drapes. The leg was elevated and exsanguinated with Eschmark bandage and the tourniquet inflated to [250] mmHg pressure. A PA was used during the procedure and was essential for intraoperative retraction and safe implantation of the components. The knee was approached through an approximately 18 cm incision centered over the patella and carried into the knee through a medial parapatellar arthrotomy. Portion of the medial and lateral meniscus was resected. Soft tissue was carefully mobilized around the patella the patella was measured with a caliper. Bone was resected from the patella and the patellar height was reconstituted with up an appropriate sized patellar component. A cover was then placed on the patella. A small amount of additional medial and lateral meniscus was resected. Pins were placed for Cori assisted navigation. A plan was carefully taken and developed. He had a very tight knee. It was quite difficult to mobilize the patella. The robotic bur was used for the distal femoral resection.It looked like an appropriate distal femoral cut and the cut was made without difficulty. The rotation was assessed and the femoral guide hole was punched and the appropriate size femoral guide was placed on the distal femur and finishing cuts were made. There is no evidence of notching. The anterior, posterior and chamfer cuts were then made. The posterior osteophytes and soft tissues were then removed. The posterior capsule was injected with part of a mixture of 60 ml 0.25% Marcaine mixed with 20 ml Exparel for post operative pain control. The remainder of this mixture was injected into the capsule and subcutaneous tissues during cement curing. The tibia was prepared By navigating the tibial guide carefully with the Cori robotic assisted navigation. The cut was made without difficulty. The rotation was assessed. The patient was placed in extension residual medial and lateral meniscus as well as any residual bone was carefully resected. Hemostasis was achieved especially posteriorly. Additional local was injected into the posterior capsule. The femoral component was trial was placed and the notch was finished. Trial tibial and femoral components were then placed and the knee placed through a range of motion. Range of motion was [0-130], with good stability throughout the range. the knee was very tight but well balanced and so I did resect 1 additional mm off of the tibia using the robotic bur all function. he came to full extension without difficulty. The patella was finished with the oval patella at the end of the procedure. The trials were then removed, and the tibia was finished. The bone was prepared with pulsatile lavage, and dried with a sponge. Cement was applied and the final prosthetics placed. Excess cement was removed during and after cement curing. After confirming there was no extruded cement posteriorly, the final tibial insert was placed. The knee was copiously irrigated and the tourniquet deflated. Hemostasis was obtained with the Bovie cautery. The capsule was closed with interrupted # 1 Vicryl suture. The subcutaneous layer was closed with barbed sutures, and the skin with a running 3-0 V-Lock suture and Surgical glue. An Aquacel Ag dressing was applied and the patient was taken to recovery having tolerated the procedure well. Complications: none Post-operative Condition: stable Disposition: Acute Care Plan for aftercare: The patient will be maintained on a standard total knee replacement protocol with weight bearing as tolerated. The patient will receive aspirin and sequential compression devices for DVT prophylaxis. The patient will be discharged home when safe for the home environment.
[2024-07-21] MEDS: CEFAZOLIN VIAL 3 GM in SODIUM CHLORIDE 0.9% 100 ML IV (19:00)
[2024-07-21] MEDS: TRANEXAMIC ACID 1,000 MG VIAL 1000 MG INJ ×2 (19:05→21:59)
--- NOTE | 2024-07-21 19:12 | SUR.OPER ---
Supine on padded OR bed. Pillow under head, arms secured on padded armboards <90 degree abduction. Safety belt across torso. Non-operative leg secured with tape over blanket over lower leg. Operative leg secured in Jose positioner. Foam padded brace at thigh of operative leg.
[2024-07-21] MEDS: BUPIVACAINE 0.25% (PF) 60 ML, EPINEPHrine 0.3 MG INJ (19:19)
[2024-07-21] MEDS: BUPIVACAINE LIPOSOME 266 MG/20 ML VIAL INJ (19:20)
[2024-07-21] MEDS: LABETALOL 20 MG/4 ML SYRINGE 5 MG IV (22:50)
--- NOTE | 2024-07-21 22:53 | PC.NURSE ---
LATE ADMIT MOSTLY COMPLETED WITH OF PATIENT WHO HAS BEEN WAITING ALL DAY SINCE 12:00. TIME OF ADMIT TO ROOM AND PAIN IF ANY LEFT BLANK,WILL COMPLETE WHEN PATIENT IS BROUGHT BACK TO ROOM
[2024-07-21] MEDS: OXYCODONE/ACETAMINOPHEN 5/325 TABLET 1 TAB PO (23:04)
[2024-07-21] MEDS: ONDANSETRON 4 MG/2 ML INJ IV (23:04)
[2024-07-22] VITALS (7 sets, daily range): BP systolic 133–159; BP diastolic 61–87; PULSE 79–97; RESP 12–22; TEMP 35.8–36.6; O2SAT 94–96
[2024-07-22] MEDS: LACTATED RINGERS 1,000 ML 100 ML IV (00:30)
[2024-07-22] MEDS: CEFAZOLIN 2 GM/100 ML PREMIX 100 ML IV ×2 (02:14→11:51)
[2024-07-22 05:21] LABS: Hematocrit 38.9 % (41-53); Hemoglobin 13.3 g/dL (13.5-17.5)
[2024-07-22] MEDS: OXYCODONE IR 10 MG TABLET PO (06:17)
[2024-07-22] MEDS: ACETAMINOPHEN 325 MG TABLET 650 MG PO (06:17)
--- NOTE | 2024-07-22 09:30 | PT.IIE ---
Current Diagnoses Unilateral primary osteoarthritis, left knee (07/21/24) Surgery Performed Operation Date: 07/21/24 13:45 Actual Procedures p Total Knee Arthroplasty - Robot(Left) - Otilia Haile MD Surgical History (Last Updated 07/11/24 @ 14:09 by Siria Jimenez, RN) History of ear surgery (~05/2024) History of total right knee replacement (12/12/21) Hx of arthroscopy of left knee Medical History (Last Updated 07/11/24 @ 14:08 by Siria Jimenez RN) BCC (basal cell carcinoma) Diabetes HLD (hyperlipidemia) Hypertension Melanoma SANAM on CPAP Osteoarthritis Physical Therapy Inpatient Evaluation/Re-Eval M1 PT/OT-IP Prior Functional Status Start: 07/22/24 12:22 Freq: NEEDED Status: Active Protocol: Document 07/22/24 09:30 AB (Rec: 07/22/24 12:39 AB [id number]) Medical Review Prior Functional Status Medical History Reviewed Yes Communication able to make needs known Mobility and Gait pt stated that he was independent with all mobilities and ambulation without AD Activities of Daily Living and IADL's per OT note: Pt able to do ADL needs but had pain. Social History Household Members spouse Living Arrangements House Number of Stairs To Enter/Railing? pt has 1 step to enter the house Home Environment Standard Height Toilet,Tub/ Shower Home Equipment Front Wheel Walker,Straight Cane,Shower Seat with Backrest ,Hand Held Shower,Software Development Advisor,Grab Bars In Shower Additional Social History Comment Pt's to be able to assist pt. M2 PT-IP Current Condition Start: 07/22/24 12:22 Freq: NEEDED Status: Active Protocol: Document 07/22/24 09:30 AB (Rec: 07/22/24 12:39 AB [id number]) Physical Therapy Current Condition Current Condition Evaluation Date 07/22/24 Treatment Diagnosis s/p L TKA; difficulty in walking Onset Date 07/21/24 M3 PT-IP Subjective Start: 07/22/24 12:22 Freq: NEEDED Status: Active Protocol: Document 07/22/24 09:30 AB (Rec: 07/22/24 12:39 AB [id number]) Subjective Physical Therapy Visit Type Type Initial Evaluation Visit Start Time 09:30 Visit Stop Time 10:30 Number of FLATWORK WASHER Visits 0 Physical Therapy Visit Comments Patient Comments agreeable to do PT Therapy Pain Assessment Location Left Knee Intensity 8 Scale Used Numeric (0 - 10) Pain Management Techniques Apply Cold,Elevation, Modification of Treatment,Re- positioning,Timing of Activity with Medications M4 PT-IP Mobility and Gait Start: 07/22/24 12:22 Freq: NEEDED Status: Active Protocol: Document 07/22/24 09:30 AB (Rec: 07/22/24 12:39 AB [id number]) PT-Bed Mobility Assessment Supine to Sit Supine to Sit Standby Assistance PT-Transfer Assessment Sit to and From Stand Sit to and from Stand Contact Guard Assistance,1 Person Assistance,Use of Upper Extremities Equipment Transfer Assistive Device Gait Belt,Front Wheeled Walker Orthotic/Prosthetic Devices or Brace: No Transfers Transfer Destination Chair Transfer Technique ambulated Transfer Ability Level of Assist Contact Guard Assistance,1 Person Assistance,Use of Upper Extremities Comments Mobility Comments pt supine in bed. Spouse in room. obtained PLOf and home set up. BP: 129/68. pt complete supine to sit SBA. able to sit on EOB SBA. no c/o dizziness. pt completed sit to stand CGA and ambulated in room using FWW ~ 20 ft with initial min A and cues for L quads activation and able to ambulate CGA after a few feet. pt sat on the chair. caregiver training conducted. educated spouse on how to use safety belt and how to assist pt. spouse was able to put safety belt on. spouse assisted pt with sit to stand and ambulation towards platform step using FWW ~ 35 ft CGA. pt completed up/down platform step CGA and PT initially providing cued for techniques. pt repeated again and spouse was able to assist and cued pt. pt ambulated back to his chair using FWW CGA. positioned pt on the chair. call light and table placed within reach. pt and spouse without further concerns. Gait Assessment Gait Gait Assistance Required: Contact Guard Assist,Minimum Assistance Distance (Feet) 35 Able to Maintain Weight Bearing Status Yes During Gait Assistive Devices Assistive Device Gait Belt,Front Wheeled Walker Orthotic/Prosthetic Devices or Brace: No Gait Deviations General Gait Pattern Antalgic,Decreased Stride Length,Decreased Feet Clearance Factors Limiting Gait Function Factors Limiting Gait Function Decreased Activity Tolerance, Decreased Strength,Difficulty Following Directions,Limited Range of Motion,Pain,Poor Balance,Poor Safety Awareness Stair Climbing Assessment Evaluation Level of Assist On Stairs Contact Guard Assistance Devices Stair Climbing Assistive Devices Front Wheel Walker Technique/Endurance Stair Climbing Direction Ascend and Descend Stair Climbing Technique Step to Step Number of Steps Climbed 1 Query Text: Stair Climbing Set # Repetitions (reps) 2 PT-Balance Assessment Sitting Balance and Reactions Static Sitting Balance Ability Normal Dynamic Sitting Balance Ability Good Standing Balance and Reactions Static Standing Balance Ability Good Dynamic Standing Balance Ability Fair Device Used FWW M5 PT-IP Objective Assessments Start: 07/22/24 12:22 Freq: NEEDED Status: Active Protocol: Document 07/22/24 09:30 AB (Rec: 07/22/24 12:39 AB [id number]) Orientation Orientation/Cognition Level of Alertness Alert Orientation Name,Place,Situation Language Function Ability Hard of Hearing Safety Awareness Decreased Safety Awareness Memory Description Short Term Impaired Gross Range of Motion Lower Extremity ROM Assessment Left Impaired Impairments L knee flexion: ~ 50 deg L knee extension: ~ 25 deg less to 0 Strength Lower Extremity Strength Assessment Left Impaired Knee 3+/5 Sensation Assessment Sensation Gross Sensation WNL Muscle Tone Muscle Tone WNL Yes M6 PT-IP Treatment Start: 07/22/24 12:22 Freq: NEEDED Status: Active Protocol: Document 07/22/24 09:30 AB (Rec: 07/22/24 12:39 AB [id number]) Physical Therapy Treatment Exercises Exercises Heel Slides Education Education Provided Precautions,Weight Bearing Status,Post-Op Packet,Safety M7 PT-IP Assessment and Plan Start: 07/22/24 12:22 Freq: NEEDED Status: Active Protocol: Document 07/22/24 09:30 AB (Rec: 07/22/24 12:39 [id number]) PT Summary Assessment and Plan Potential Rehabilitation Potential Fair Status of Condition at Evaluation Stable Summary Impairments Pain,ROM,Strength,Balance, Coordination,Sensation,Tone, Cognition,Bed Mobility, Transfers,Gait,Activity Tolerance Assessment Summary pt is a 58 y/o M s/o L TKA POD 1. pt is WBAT on LLE. pt requiring CGA wtih mobility using fWW. Caregiver training conducted and spouse was able to assist pt safely. pt may go home when medically stable. Goals Bed Mobility Goal Independent Transfer Goal Independent,Front Wheeled Walker Gait Goal Independent,Front Wheel Walker Gait Distance 200 Other Goals up/down 1 platform set using FWW mod I Days to Meet Goals 5 Frequency of Treatment Frequency Of Treatment Twice a Day Treatment Plan Physical Therapy Treatment Plan Bed Mobility Training,Transfer Training,Gait Training, Therapeutic Exercise,Balance Retraining,Post Op Education, Discharge Planning,Hot or Cold Pack,Neuromuscular Re-ed, Coordination Retraining,Manual Therapy Weight Bearing Status Weight Bearing Status Weight Bear as Tolerated Allowed Weight Bearing Amount (enter % LLE WBAT or #) (%) Recommendations To Nursing Amount of Assist Needed 1 Person Assist Discharge Recommendations PT Discharge Recommendations Home with Assistance, Outpatient PT Transportation Needs at Discharge Private Vehicle
[2024-07-22] MEDS: OXYCODONE IR 5 MG TABLET PO (09:35)
[2024-07-22] MEDS: ATORVASTATIN 20 MG TABLET PO (09:36)
[2024-07-22] MEDS: ASPIRIN EC 81 MG TABLET PO (09:36)
[2024-07-22] MEDS: DOCUSATE 100 MG CAPSULE PO (09:36)
[2024-07-22] MEDS: IBUPROFEN 400 MG TABLET PO (09:36)
--- NOTE | 2024-07-22 10:40 | PC.NURSE ---
Addendum entered by Erna Delgadillo R.N. 07/22/24 11:19: PA is putting consuelo in patients incision at this time, and he will be changing his dressing. Patient is due for more pain medication at 1230. Will check his pain level soon. Original Note: Patient given 1 oxcodone and ibuprofen earlier for discomfort and helpful. He has worked with physical therapy. Will work with OT soon. Dressing to knee leaking some blood. PA in changing bandange now. He is doing well and vss.
--- NOTE | 2024-07-22 11:04 | CM.DANOTE ---
Initial DCP Assessment Note Pt is a 58 yo male, resident of [place], now POD#1 from Left TKA PCP: Alison Wagner Payer: [place] [employer] Reviewed chart, pt discussed in multidisciplinary rounds this morning. Met w/patient and sp, reviewed discharge plan. Patient lives independently with spouse and plans to return with spouse to assist throughout recovery. Patient has arranged outpatient PT. Therapy eval pending. CM team will plan to follow clinical course closely in case any DC needs or concerns arise. LENARD Castillo Discharge Planning/Care Management CM Discharge Assessment Start: 07/22/24 11:02 Freq: Status: Active Protocol: Document 07/22/24 11:02 ROSE (Rec: 07/22/24 11:04 ROSE [id number]) Discharge Planning Assessment Assigned Sports Leadership Instructor LENARD Mackenzie DPOA/Assigned Designee Name Jemma Baird, spouse Contact Information [phone] Advance Directives? Yes Advance Directives on File Yes History Provided By Patient,Family Member,Medical Record Prior Living Arrangements House Household Members spouse Type of transporation used prior to Drives own vehicle admit Independent with ADL's Yes Is patient alert and oriented? Yes Comment Patient indicated he uses a walking stick. Patient/Family Preference OP PT Therapy Barriers to Discharge No Discharge Plan Home Transportation Arrangement Spouse Referrals Initiated None needed
--- NOTE | 2024-07-22 11:25 | OT.IP.EVAL ---
Current Diagnoses Unilateral primary osteoarthritis, left knee (07/21/24) Surgery Performed Operation Date: 07/21/24 13:45 Actual Procedures p Total Knee Arthroplasty - Robot(Left) - Otilia Haile MD Past Medical History (Last Updated 07/11/24 @ 14:08 by Siria Jimenez, RN) BCC (basal cell carcinoma) Diabetes HLD (hyperlipidemia) Hypertension Melanoma SANAM on CPAP Osteoarthritis Surgical History (Last Updated 07/11/24 @ 14:09 by Siria Jimenez RN) History of ear surgery (~05/2024) History of total right knee replacement (12/12/21) Hx of arthroscopy of left knee Occupational Therapy Inpatient Evaluation/Re-Eval M1 PT/OT-IP Prior Functional Status Start: 07/22/24 11:27 Freq: NEEDED Status: Active Protocol: Document 07/22/24 11:27 [facility] (Rec: 07/22/24 11:36 [facility] [id number]) Medical Review Prior Functional Status Communication I Mobility and Gait Pt did not use a device and just able to walk a block. Activities of Daily Living and IADL's Pt able to do ADL needs but had pain. Social History Household Members spouse Living Arrangements House Number of Stairs To Enter/Railing? Pt states has 1.5 steps to get in from his garage. Home Environment Standard Height Toilet,Tub/ Shower Home Equipment Front Wheel Walker,Straight Cane,Bedside Commode,Shower Seat with Backrest,Hand Held Shower,Casting Wheel Operator,Grab Bars In Shower Additional Social History Comment Pt's to be able to assist pt. M2 OT-IP Current Condition Start: 07/22/24 11:27 Freq: Status: Active Protocol: Document 07/22/24 11:27 [facility] (Rec: 07/22/24 11:36 [facility] [id number]) Occupational Therapy Current Condition Current Condition Evaluation Date 07/22/24 Treatment Diagnosis S/P L TKA Diagnosis Onset Date 07/21/24 M3 OT- IP Subjective and Pain Start: 07/22/24 11:27 Freq: Status: Active Protocol: Document 07/22/24 11:27 [facility] (Rec: 07/22/24 11:36 [facility] [id number]) OT- Subjective Occupational Therapy Visit Type Type Initial Evaluation Visit Start Time 08:50 Visit Stop Time 11:25 Notes Pt seen for split treatments 850-901, [id number]. Occupational Therapy Visit Comments Patient Comments Pt not wanting to get up at this time and PA just completed stapling his left knee incision. Patient/Caregiver Goals TO go home. OT Pain Assessment Pain When Pain Assessed At Rest Pain Present Pain Present Pain Reported Location Left Knee Intensity 7 Scale Used Numeric (0 - 10) M4 OT- IP ADL's Start: 07/22/24 11: Freq: Status: Active Protocol: Document 07/22/24 11: [facility] (Rec: 07/22/24 11:36 [facility] [id number]) OT [id number] General Evaluation Self-Feeding Ability Independent OT ADL-Grooming General Evaluation Grooming Ability Independent OT ADL-Oral Care Comments Oral Care Comments Not performed. OT ADL-Dressing General Eval Lower Body Dressing Ability Maximum Assistance Comments OT Dressing Comments Educated to dress the LLE first and take out last. OT ADL-Toileting Comments OT Toileting Comments Suggested to take the urianl home. OT ADL-Bathing Comments OT Bathing Comments Suggested to sponge off prior to going home. Educated to cover the dressing prior to showering. M5 OT- IP IADL's Start: 07/22/24: Freq: Status: Active Protocol: Document 07/22/24 11: [facility] (Rec: 07/22/24 11:36 [facility] [id number]) OT-Instrumental Activities of Daily Living Deficits IADL Deficits Identified Deficits Home Safety Awareness Awareness of Need for Assistance at Home Good Awareness Ability to Problem Solve Emergency Able to Problem Solve Situations Medication Management Medication Management No Deficits Identified Money Management Money Management No Deficits Identified Meal Preparation Meal Preparation Caregiver Provides Assist Squirt Machine Operator Squirt Machine Operator Caregiver Provides Assist M6 OT- IP Functional Cognition Start: 07/22/24:27 Freq: Status: Active Protocol: Document 07/22/24 11:27 [facility] (Rec: 07/22/24 11:36 [facility] [id number]) Cognitive Factors Limiting Selfcare Function Cognitive Ability Level of Alertness Alert Patient Orientation Name,Age,Birthday,Month,Date, Year,Day of Week,Place, Situation Attention Span Ability Capable of Focused Attention, Capable of Sustained Attention Ability to Follow Commands Able to Follow One Step Commands Cognitive Comments Cognitive Assessment Comments Pt able to follow commands during ADL needs. OT- Vision and Hearing OT- Hearing Assessment OT- Hearing Assessment WFL OT- Vision Assessment Visual Acuity Glasses All The Time Visual Attentiveness WFL Occular Pursuits WFL M7 OT- IP Mobility and Balance Start: 07/22/24 11:27 Freq: Status: Active Protocol: Document 07/22/24 11:27 [facility] (Rec: 07/22/24 11:36 [facility] [id number]) OT-Transfer Assessment Comments Mobility Comments Please see PT eval, pt wanting to remain seated as PA just completed stapling his knee incision and in lots of pain. OT- Balance Assessment Sitting Balance and Reactions Static Sitting Balance Ability Normal Dynamic Sitting Balance Ability Good M8 OT- IP Objective Assessments Start: 07/22/24 11:27 Freq: Status: Active Protocol: Document 07/22/24 11:27 [facility] (Rec: 07/22/24 11:36 [facility] [id number]) OT Gross Range of Motion Upper Extremity Range of Motion Assessment Within Functional Limits OT Strength Upper Extremity Strength Assessment Within Functional Limits M9 OT- IP Assessment and Plan Start: 07/22/24 11:27 Freq: Status: Active Protocol: Document 07/22/24 11:27 [facility] (Rec: 07/22/24 11:36 [facility] [id number]) OT Summary Assessment and Plan Potential Rehabilitation Potential Excellent Analytic Complexity at Evaluation Low Summary OT Impairments Pain,Functional Mobility, Dressing,Toileting,Bathing, Toilet Transfers,Shower Transfers Progress Towards Goals Slow Progress due to Pain Assessment Summary Pt low complexity and main barriers are steps and will need assist for some ADL needs . Pt has a supportive to be able to assist with his needs. Pt to go home when medically stable. Goals Self-Feeding Goal Independent Dressing Goal Minimal Assistance Toileting Goal Independent Bathing Goal Minimal Assistance Toilet Transfer Goal Independent Shower Transfer Goal Standby Assistance Days to Meet Goals 5 Frequency of Treatment Other frequency 5x/week Treatment Plan OT Treatment Plan ADL Training,Functional Mobility,Patient/Family Education,Discharge Planning Discharge Recommendations OT Discharge Recommendations Home with Assistance, Outpatient PT Transportation Needs at Discharge Private Vehicle
--- NOTE | 2024-07-22 14:29 | PM.DS.1 ---
History of Present Illness History of Present Illness Chief complaint: Left TKA Robot *OPB* Narrative: [place] is a pleasant 58 year old male who is POD#1 s/p L TKA by Dr. Haile. This morning patient reports he is doing well, he would like to d/c to home today. He lives at home with who is willing and able to aid in his postop recovery. He has walker, pain medication and postop physical therapy already scheduled at [facility]. He is urinating well w/o issue and practiced ambulation w/ PT already today. He does note that his wound is bleeding through his Sunny bandage, otherwise has no concerns. Denies fever, chills, chest pain, SOB, nausea, vomiting. Operative Date/Time/Diagnoses Date of procedure: 07/21/24 Time of procedure: 16:50 Pre-op diagnosis: left knee OA Post-op diagnosis: same Procedure & Clinicians Procedure: Left total knee arthroplasty Same procedure as scheduled: Yes Indications: The patient has had progressively worsening left knee pain with radiographic changes consistent with arthritis. Non-operative management has failed and the patient has requested total knee replacement. The risks, benefits and alternatives to surgery were discussed with the patient prior to proceeding. Risks discussed included, but were not limited to, failure to relieve pain, stiffness, infection, nerve damage, deep venous thrombosis, pulmonary embolism, stroke, coma, heart attack, permanent paralysis and , as well as the potential need for eventual revision of the prosthetic. Surgeon: Otilia Haile Call Or Contact Centre Operator: Buster Tavares Anesthesia Type: General and Spinal Discharge Providers Provider Discharge Date: 07/22/24 Primary care physician: TYESHA Kong Consults: 07/21/24 06:00 Consult to Anesthesiology Routine Comment: Consulting Provider: Anesthesiologist Reason for consultation: Regional block for post operative pain control Has provider been notified: No 07/21/24 23:16 Consult to Discharge Planning Routine Comment: Consult to Occupational Therapy Evaluate & Treat Comment: Physician Instructions: Evaluate and treat Consult to Physical Therapy Evaluate & Treat Comment: Physician Instructions: postop TKA protocol Discharge provider: Susan Castellon PA-C Summary Hospital Course Discharge Diagnosis: Stable status post left total knee arthroplasty. Hospital Course: Uncomplicated hospital course Exam Vital Signs (past 8 hours): - 07/22/24 08:45 07/22/24 12:00 Temperature 96.9 F L 97.9 F Pulse Rate 87 97 H Respiratory Rate 12 18 Blood Pressure 133/65 154/72 H Pulse Oximetry 94 96 Oxygen Flow Rate 0 0 Fraction of Inspired Oxygen 32 SaO2/FiO2 Ratio 293 Oxygen Delivery Method Nasal Cannula Oxygen Flow Rate 0 Narrative Exam Narrative: Patient sitting comfortably in bedside chair during our interview today. No acute distress. AOx3. at bedside. Grossly normal alignment of the left lower extremity with moderate swelling throughout. 5/5 strength with DF, PF, EHL bilaterally. Gross sensation intact throughout bilateral lower extremities. Calves soft and non-tender bilaterally. SCDs are on and functioning. Brisk capillary refill, pulses intact. Post-surgical Sunny bandage and Aquacel dressing intact although completely saturated with blood at the middle of the incision and leaking out from under the Aquacel. Proximal and distal incision is clean and dry. Resp Effort & Inspection: normal respiratory effort and able to speak in complete sentences Objective Labs 07/22/24 04:30 Labs: Laboratory Results - last 24 hr 07/22/24 04:30 Hgb 13.3 L Hct 38.9 L PFSH Medical History (Updated 07/11/24 @ 14:08 by Siria Jimenez RN) Melanoma BCC (basal cell carcinoma) Osteoarthritis HLD (hyperlipidemia) SANAM on CPAP Hypertension Diabetes Surgical History (Updated 07/11/24 @ 14:09 by Siria Jimenez RN) History of total right knee replacement (12/12/21) History of ear surgery (~05/2024) Hx of arthroscopy of left knee Social History household members: spouse Smoking Status: Never smoker alcohol intake: current Discharge Assessment & Plan Assessment and Plan Assessment: Stable status post left total knee arthroplasty although w/ bloody drainage from the wound still. The patient's left knee dressing was taken down. The skin overlying the incision was cleaned using chlorhexidine. 4 cc of 2% lidocaine was injected around the edges of the middle incision site, consuelo were then placed over the middle of the incision where the wound was draining after adequate had passed for the skin to numb. Patient demonstrated flexion and extension of the left knee and adequate time had passed without any further bloody drainage from the wound therefore the wound was then redressed with a new Aquacel dressing covered in Sunny bandage. Plan of Treatment: 1) Plan to discharge to home today with . 2) Continue multimodal pain management with ice to the knee for additional pain control. 3) ASA b.i.d. for DVT prophylaxis. 4) Start outpatient physical therapy to work on range of motion and mobility 5) Keep dressing intact, clean, dry until 2 week postop appointment. No soaking the incision site in pools or tubs. No topical ointments or creams to the incision site. 6) Follow up at [facility] orthopedics in 2 weeks for a postop appointment and wound check. All patient and his wifes questions were answered, they demonstrates understanding and are in agreement with the plan. Call our office if any questions or concerns arise. Discharge Plan Discharge Plan Patient Disposition: Home Discharge orders & Medications Discharge Orders: Discharge (Order); Ordered 07/22/24 Ordered By: Susan Castellon Prescriptions: New ondansetron 4 mg Tablet,Disintegrating 4 mg PO Q4HR PRN (Reason: Nausea And Vomiting) Qty: 7 0RF oxycodone 5 mg Tablet 5 mg PO Q4-6H PRN (Reason: Pain, Moderate (4-6)) Qty: 30 0RF acetaminophen 325 mg Tablet 650 mg PO Q6H PRN (Reason: Fever/Mild Pain (1-3)) Qty: 90 0RF aspirin 81 mg Tablet,Delayed Release (Dr/Ec) 81 mg PO BID Qty: 90 0RF docusate sodium 100 mg Capsule 100 mg PO BID PRN (Reason: Constipation) Qty: 30 0RF ibuprofen 600 mg tablet 600 mg PO Q6HR PRN (Reason: Pain, Mild (1-3)) Qty: 60 0RF Continued atorvastatin 20 mg Tablet 20 mg PO DAILY cetirizine 10 mg Tablet 10 mg PO BEDTIME amlodipine 5 mg Tablet 5 mg PO QPM lisinopril 40 mg Tablet 40 mg PO BEDTIME metoprolol tartrate 25 mg Tablet 25 mg PO BEDTIME Discontinued acetaminophen 325 mg tablet 650 mg PO Q6HR PRN (Reason: Pain) aspirin 81 mg tablet,delayed release (DR/EC) 81 mg PO DAILY PRN (Reason: Pain) polyethylene glycol 3350 17 gram Powder In Packet 17 gm PO DAILY PRN (Reason: Constipation) Qty: 20 0RF oxycodone 10 mg Tablet 10 mg PO Q3HR PRN (Reason: Pain, Severe (7-10)) Qty: 60 0RF Follow up/Referrals: Otilia Haile MD [Physician] - (Follow up at [facility] as scheduled in 2 weeks. ) Alison Wagner ARNP [Primary Care Provider] - Diet/Activity/Treatments Diet: Diet as Tolerated Activity: Weightbearing as tolerated, work with outpatient physical therapy to improve range of motion and strength. Cold/Heat Therapy: Ice to the knee for additional pain control. Skin/Wound/Dressing Care Report to your healthcare provider any signs of infection, such as:: chills, fever, night sweats, unusual drainage and unusual redness Dressing: Keep dressing intact, clean and dry until 2 week post-op appointment. No soaking the incision site in pools or tubs. No topical ointments or creams to the incision site. Visit Report/Discharge Packet Instructions: DI for Knee Replacement, DI for Prescription Opioid Use Stand Alone Forms: Patient Portal/API Discharge Data Primary Care Provider: Alison Wagner Attending Provider: Otilia Haile Quality VTE Deep Vein Thrombosis/Pulmonary Embolism Present on Admission: No
== END 2024-07-22 14:39 | disposition home or self-care (01) ==
LOC: OR 11:12 → AC 11:13
PROVIDERS: PCP Nurse Practitioner; Referring Provider Orthopaedic Surgery; Visit Provider Orthopaedic Surgery
PROC: 0SRD0JZ Replacement of Left Knee Joint with Synthetic Substitute, Open Approach (ICD-10-PCS; CPT 27447; principal; 2024-07-21 13:45)
DX: M17.12 Unilateral primary osteoarthritis, left knee (principal); M25.762 Osteophyte, left knee
CPT/HCPCS: 27447; 20985; 36415; 73560; 82962; 85014; 85018; 97161; 97165; 97530; C1776; C9290; J0171; J0690; J1100; J1171; J2405; J2704; J3010